=== PATIENT | female | born 1945 | race Caucasian/White ===

== ENCOUNTER 2016-10-31 11:01 | Emergency (ER) | payer MEDICARE, BC ==
[~2016-10-31] VITALS: Ht 162.6 cm; Wt 95.0 kg
[2016-10-31] MEDS ORDERED: SYNTHROID50 MCG PO (11:16)
[2016-10-31] MEDS ORDERED: DIOVAN HC1 PO (11:17)
[2016-10-31] MEDS ORDERED: OMEPRAZOLE10 MG PO (11:17)
[2016-10-31] MEDS ORDERED: LIPITOR20 MG PO (11:17)
[2016-10-31] MEDS ORDERED: ALENDRONATE70 MG PO (11:18)
[2016-10-31] MEDS ORDERED: VISTARIL25 MG PO (11:18)
[2016-10-31] MEDS ORDERED: INDOMETHACIN50 MG PO (12:36)
[2016-10-31] MEDS ORDERED: DOXYCYCL HYC100 MG PO (12:36)
[2016-10-31 12:47] VITALS: BP 144/73
== END 2016-10-31 12:47 | disposition home or self-care (01) ==
LOC: ED 11:01
DX: M10.9 Gout, unspecified (principal); E03.9 Hypothyroidism, unspecified; E78.00 Pure hypercholesterolemia, unspecified; I10 Essential (primary) hypertension; M19.90 Unspecified osteoarthritis, unspecified site; K21.9 Gastro-esophageal reflux disease without esophagitis

== ENCOUNTER 2016-11-02 11:41 | Emergency (ER) | payer MEDICARE, BC ==
[~2016-11-02] VITALS: Ht 162.6 cm; Wt 96.0 kg
[~2016-11-02 11:41] MED LIST: ALENDRONATE70 MG PO; DIOVAN HC1 PO; DOXYCYCL HYC100 MG PO; INDOMETHACIN50 MG PO; LIPITOR20 MG PO; OMEPRAZOLE10 MG PO; SYNTHROID50 MCG PO; VISTARIL25 MG PO
[2016-11-02] MEDS ORDERED: TRAMADOL HYDROC50 MG PO (12:07)
[2016-11-02 12:20] VITALS: BP 116/75
== END 2016-11-02 12:20 | disposition home or self-care (01) ==
LOC: ED 11:41
DX: M10.9 Gout, unspecified (principal)